=== PATIENT | male | born 1940 | race Caucasian/White ===

== ENCOUNTER 2020-09-15 00:22 | Emergency (ER) | payer MEDICARE, BC, SELFPAY ==
--- NOTE | ~2020-09-15 | CT_ITS ---
EXAMINATION: CT CERVICAL SPINE WITHOUT CONTRAST CLINICAL INFORMATION: Fracture COMPARISON: Head CT from earlier today, head CT 04/18/2017, cervical spine CT 03/11/2017 TECHNIQUE: Multidetector helical imaging was performed through the cervical spine. Coronal and sagittal reformatted images were created. This CT examination was performed using dose optimization techniques as appropriate, variously including the following: *Automated exposure control *Adjustment of mA and/or kV according to patient size (this includes techniques or standardized protocols for targeted exams where dose is matched to indication/reason for exam; i.e. extremities or head) *Use of iterative reconstruction technique DLP: 578 mGy-cm FINDINGS: Limited evaluation due to patient positioning. There is a mildly distracted anterior arch fracture of C1. There are also fractures of the left and right posterior arches of C1 which demonstrate minimal distraction. These fractures appear age-indeterminate. There is grade 1 anterolisthesis of C2 on C3 which is new compared to 03/11/2017. There is grade 2 anterolisthesis of C3 on C4 which is unchanged from prior. Vertebral body heights are maintained. There is diffuse disc space narrowing of the mid to lower cervical spine with associated endplate osteophytes. Multilevel facet arthropathy is present, most severe at C2-C3. Prevertebral soft tissue prominence at the level of the mid cervical spine appears somewhat similar to prior. Pulmonary groundglass opacities are noted within much of the visualized left upper and lower lobes. CT/CT cervical spine wo con IMPRESSION: 1. Suboptimal assessment due to patient positioning. Age-indeterminate fractures of C1 involving the anterior arch and left and right aspects of the posterior arch. Grade 1 anterolisthesis of C2 on C3 is new from prior and may reflect sequelae of the C1 fractures. 2. Degenerative changes throughout the mid to lower cervical spine appear similar to prior. 3. Pulmonary groundglass opacities within much of the left lung which may be infectious/inflammatory in nature.
--- NOTE | ~2020-09-15 | CT_ITS ---
EXAMINATION: CT HEAD WITHOUT CONTRAST CLINICAL INFORMATION: Head injury COMPARISON: 04/18/2017 TECHNIQUE: Contiguous axial imaging was performed from the skull base to vertex without intravenous administration of contrast. This CT examination was performed using dose optimization techniques as appropriate, variously including the following: *Automated exposure control *Adjustment of mA and/or kV according to patient size (this includes techniques or standardized protocols for targeted exams where dose is matched to indication/reason for exam; i.e. extremities or head) *Use of iterative reconstruction technique DLP: 2436 mGy-cm FINDINGS: Suboptimal assessment due to patient positioning. There is no evidence of acute intracranial hemorrhage or territorial infarction. No abnormal mass effect or midline shift is seen. Ross to white matter differentiation is well preserved. No extra-axial fluid collections are identified. The ventricles are normal in size. Moderate volume loss is noted. No acute calvarial fracture is seen. There is leftward deviation of the nasal septum. The mastoid air cells and visualized portions of the paranasal sinuses are well aerated. There is a mildly distracted fracture through the anterior arch of C1 and essentially nondisplaced fractures through the right and left posterior arches; these are age-indeterminate though appear new from 04/18/2017. There is grade 1 anterolisthesis of C2 on C3. There is disc space narrowing, endplate osteophyte formation, and facet arthropathy throughout the thoracic spine. Groundglass opacity is present within portions of the left upper and lower lobes. CT/CT head/brain wo con IMPRESSION: 1. Suboptimal assessment due to patient positioning. No acute intracranial findings identified. 2. Fractures of the anterior and posterior arches of C1, age-indeterminate though new from 04/18/2017. Grade 1 anterolisthesis of C2 on C3 and degenerative changes in the remainder of the cervical spine. 3. Pulmonary groundglass opacities in the left lung are nonspecific and may be infectious/inflammatory in etiology.
[2020-09-15 00:30] VITALS: BP 110/52; PULSE 57; RESP 15; TEMP 37.1; O2SAT 95; BMI 22.2
[2020-09-15 00:39] VITALS: BP 95/57; PULSE 60; O2SAT 97
--- NOTE | 2020-09-15 01:30 | ED_ITS ---
HPI - Fall General Chief Complaint: Fall Stated Complaint: Fall Time Seen by Provider: 09/15/20 01:29 History of Present Illness HPI Narrative: Patient is a 80-year-old male status post hitting his head while taking a shower. It was accidental in nature. There is a laceration to his sca lp. Patient denies any nausea vomiting. Family denies any changes in his mental status. Sent into the emergency department for further evaluation. No nausea no vomiting. No new focal weakness. Patient is contracted. Related Data Allergies Allergy/AdvReac Type Severity Reaction Status Date / Time No Known Drug Allergies Allergy Mild NONE Unverified 12/22/19 16:06 [NO KNOWN DRUG ALLERGIES] Review of Systems Review of Systems: Constitutional: No Weight loss, No Fever, No Chills, No Night Sweats, No Fatigue, No Malaise ENT/Mouth: No Hearing loss, No Ear Pain, No Nasal Congestion, No Sinus Pain, No Hoarseness, No sore throat, No Rhinorrhea, No Swallowing Difficulty Eyes: No Eye Pain, No Swelling, No Redness, No Foreign Body, No Discharge, No Vision Changes Cardiovascular: No Chest Pain, No SOB, No Dyspnea on Exertion, No Orthopnea, No Edema, No Palpitations Respiratory: No Cough, No Sputum, No Wheezing, No Smoke Exposure, No Dyspnea Gastrointestinal: No Nausea, No Vomiting, No Diarrhea, No Constipation, No abdominal Pain, No Hematochezia, No Melena Genitourinary: no irregular bleeding, No Dysuria, No Urinary Frequency, No Hematuria, No Urinary Incontinence, No Urgency, No Flank Pain, No Urinary Flow Changes, No Hesitancy Musculoskeletal: No joint pain, No Myalgias, No Joint Swelling Skin: No Skin Lesions, No rash Neuro: No Weakness, No Numbness, No Paresthesias, No Loss of Consciousness, No Dizziness, No Headache Psych: No Anxiety/Panic, No Depression, No SI/HI/AH/VH, No Social Issues, Heme/Lymph: No Bruising, No Bleeding,No Lymphadenopathy Endocrine: No Polyuria, No Polydipsia, No Temperature Intolerance [facility] Past Medical History Attestation statement: The following information was validated with the patient. Medical History Dementia Surgical History No history of previous surgery Social History Social History Patient Tobacco Use Status: Never used Tobacco Use of substances other than those prescribed or required for medical reasons: No Advance Directives: No Advance Directives Information Provided: No Physical Exam Vital Signs: Vital Signs: Last Vital Signs Temp 98.8 F 09/15/20 00:30 Pulse 60 09/15/20 02:00 Resp 15 09/15/20 02:00 BP 124/69 09/15/20 02:00 Pulse Ox 95 09/15/20 02:00 Body Mass Index 22.2 Appearance: Alert. Oriented X3. No acute distress. Eyes: Pupils equal, round and reactive to light. ENT: Pharynx normal. Positive 4 cm head laceration to the right temporal area. Down to subcutaneous tissue. There is no hemotympanum. Nose is patent. There is no midface tenderness. There is no malocclusion. Neck: Normal inspection. Neck supple. No lymph nodes noted. No crepitus CVS: Normal heart rate and rhythm. Pulses normal. Normal S1 and S2 Respiratory: No respiratory distress. Breath sounds normal. No Wheezing. No rales Abdomen: Soft and nontender. No rigidity. No distention. good BS x4 Skin: Skin warm and dry. Normal skin color. Normal skin turgor. Extremities: No lower extremity edema. Neurovascular intact to all extremities. No Lacerations. No Rash Neuro: Oriented X 3. Contracted, moving all extremities No sensory deficit. No slurred speech Procedures Laceration Laceration 1: Site: scalp Size (cm): 4 Description: linear Depth: simple, single layer Local Anesthetic: lidocaine 1% Amount of anesthesia used (mL): 5.0 Pre-repair: wound explored Skin layer closed with: other ([place]) MDM - Fall MDM Narrative Medical decision making narrative: Patient's C-spine CT showed a C1 fracture. Will need further evaluation by neurosurgical team. CT the head was grossly negative for any acute evidence of bleeding. Patient is not on blood thinners. Because we had no neural surgery at [facility]. Patient's case discussed with Dr. Maria from Trauma surgery. Patient is still moving his extremities. Her ex- patient's mobility is approximately baseline. Will try to immobilize patient's neck to best extent possible. Will transfer to [facility] for further evaluation. Critical Care Time Critical Care Time Total Critical Care Time: 40 Attestation: I have personally provided 40 minutes of critical care time exclusive of time spent on separately billable procedures. Time includes review of lab data, radiology results, discussion with consultants, and monitoring for potential decompensation. Interventions were performed as documented above Discharge Plan Discharge Clinical Impression: Head injury, Cervical spine fracture Patient Disposition: Home, Self-Care Instructions: Head Injury (ED), Staple Care (ED) Referrals: Solomon Vernon PA [Primary Care Provider] - 2 days (Staple removal in 1 week.)
[2020-09-15 02:00] VITALS: BP 124/69; PULSE 60; RESP 15; O2SAT 95
[2020-09-15] MEDS: Diphth,Pertus(ACell),Tet Adult 0.5 ML SYRINGE IM (02:33)
[2020-09-15] MEDS: Lidocaine HCl 1 % MPF 5 ML VIAL SUBCUT (02:35)
[2020-09-15 04:00] VITALS: BP 124/69; PULSE 60; RESP 15; TEMP 37.1; O2SAT 95
[2020-09-15 05:34] LABS: COVID-19 Test Negative (Negative); IDNOW Serial# 9DD0AD1C
== END 2020-09-15 06:23 | disposition short-term general hospital (02) ==
PROVIDERS: Emergency Provider Emergency Medicine Emergency Medical Services; PCP Physician Assistant Medical
DX: S12.000A Unspecified displaced fracture of first cervical vertebra, initial encounter for closed fracture (principal); S01.01XA Laceration without foreign body of scalp, initial encounter; F03.90 Unspecified dementia, unspecified severity, without behavioral disturbance, psychotic disturbance, mood disturbance, and anxiety; W22.09XA Striking against other stationary object, initial encounter; Y93.E1 Activity, personal bathing and showering; Y92.9 Unspecified place or not applicable; Y99.9 Unspecified external cause status; Z20.822 Contact with and (suspected) exposure to COVID-19; W18.2XXA Fall in (into) shower or empty bathtub, initial encounter; Y92.019 Unspecified place in single-family (private) house as the place of occurrence of the external cause
CPT/HCPCS: 12002; 36415; 70450; 72125; 87635; 90471; 90715; 99285; 99291